=== PATIENT | male | born 1950 | race Caucasian/White ===

== ENCOUNTER 2018-06-02 12:32 | Emergency (ER) | payer OTHER, MEDICARE ==
[~2018-06-02] VITALS: Ht 177.8 cm; Wt 84.1 kg
[2018-06-02 13:36] LABS: CLARITY,URINE CLOUDY (Clear); COLOR,URINE YELLOW (Yellow); GLUCOSE, URINE NEGATIVE (Neg); KETONES,URINE NEGATIVE (Neg); LEUKOCYTE ESTERASE ,URINE NEGATIVE (Neg); NITRITES, URINE NEGATIVE (Neg); OCCULT BLOOD,URINE LARGE (Neg); PH,URINE 7.5 (4.8-8.0); PROTEIN,URINE TRACE mg/dl (Neg); UROBILINOGEN,URINE 0.2 E.U/dL (0.2-1.0)
[2018-06-02 13:37] LABS: UA COLLECTION TYPE CLN CATCH MIDSTREAM
[2018-06-02 13:41] LABS: BACTERIA,URINE NONE SEEN /HPF (Neg); MUCUS STRANDS NONE SEEN /LPF (Neg); RBC,URINE TNTC /HPF (0-2); SQUAMOUS EPITHELIAL CELL,UR NONE SEEN /LPF (FEW); WBC,URINE 0-4 /HPF (0-4)
[2018-06-02 14:25] VITALS: BP 125/68
== END 2018-06-02 14:26 | disposition home or self-care (01) ==
LOC: ER 12:34
DX: R33.9 Retention of urine, unspecified (principal); F17.200 Nicotine dependence, unspecified, uncomplicated
CPT/HCPCS: 51702; 81001; 99284; 99285

== ENCOUNTER 2018-06-12 23:41 | Emergency (ER) | payer OTHER ==
[~2018-06-12] VITALS: Ht 177.8 cm; Wt 84.1 kg
[2018-06-13 00:59] VITALS: BP 162/94
[2018-06-13 01:30] LABS: CLARITY,URINE SLIGHTLY CLOUDY (Clear); GLUCOSE, URINE NEGATIVE (Neg); KETONES,URINE NEGATIVE (Neg); LEUKOCYTE ESTERASE ,URINE NEGATIVE (Neg); NITRITES, URINE NEGATIVE (Neg); OCCULT BLOOD,URINE LARGE (Neg); PH,URINE 6.5 (4.8-8.0); PROTEIN,URINE 30 mg/dl (Neg); UROBILINOGEN,URINE 0.2 E.U/dL (0.2-1.0)
[2018-06-13 01:34] LABS: COLOR,URINE Pink (Yellow); UA COLLECTION TYPE FOLEY CATH
[2018-06-13 01:38] LABS: BACTERIA,URINE NONE SEEN /HPF (Neg); RBC,URINE TNTC /HPF (0-2); SQUAMOUS EPITHELIAL CELL,UR NONE SEEN /LPF (FEW)
[2018-06-13 01:39] LABS: WBC,URINE 0-4 /HPF (0-4)
== END 2018-06-13 01:15 | disposition home or self-care (01) ==
LOC: ER 23:42
DX: R33.9 Retention of urine, unspecified (principal)
CPT/HCPCS: 51702; 81001; 99284

== ENCOUNTER 2018-07-08 08:58 | Emergency (ER) | payer OTHER ==
[~2018-07-08] VITALS: Ht 177.8 cm; Wt 82.0 kg
[2018-07-08 09:02] VITALS: BP 164/93
[2018-07-08 11:14] LABS: CLARITY,URINE SLIGHTLY CLOUDY (Clear); COLOR,URINE YELLOW (Yellow); GLUCOSE, URINE NEGATIVE (Neg); KETONES,URINE NEGATIVE (Neg); LEUKOCYTE ESTERASE ,URINE MODERATE (Neg); NITRITES, URINE POSITIVE (Neg); OCCULT BLOOD,URINE LARGE (Neg); PH,URINE 6.5 (4.8-8.0); PROTEIN,URINE TRACE mg/dl (Neg); UROBILINOGEN,URINE 0.2 E.U/dL (0.2-1.0)
[2018-07-08 11:25] LABS: UA COLLECTION TYPE FOLEY CATH
[2018-07-08 11:27] LABS: BACTERIA,URINE 2+ /HPF (Neg); MUCUS STRANDS NONE SEEN /LPF (Neg); SQUAMOUS EPITHELIAL CELL,UR FEW /LPF (FEW); WBC,URINE TNTC /HPF (0-4)
[2018-07-08] MEDS ORDERED: CIPR-259 PO (11:37)
[2018-07-08] MEDS ORDERED: CEPH500C5 PO (11:47)
== END 2018-07-08 11:55 | disposition home or self-care (01) ==
LOC: ER 08:59
DX: T83.038A Leakage of other urinary catheter, initial encounter (principal); F17.200 Nicotine dependence, unspecified, uncomplicated; Z79.2 Long term (current) use of antibiotics; Y92.89 Other specified places as the place of occurrence of the external cause
CPT/HCPCS: 51702; 81001; 87077; 87088; 87186; 99284

== ENCOUNTER 2018-10-31 07:53 | Day surgery (SDC) | payer OTHER, MEDICARE ==
[~2018-10-31] VITALS: Ht 177.8 cm; Wt 84.0 kg
[2018-10-31] VITALS (18 sets, daily range): BP systolic 120–159; BP diastolic 70–105
[~2018-10-31 07:53] MED LIST: NO HOME MEDS; ceFAZolin 2gm in dextrose, iso 100 ML IV ONE; famotidine 20mg tablet PO ONE; ringers solution, lacted 1,000 ML IV SCH
[2018-10-31 08:45] LABS: BASOPHILS # (AUTO) 0.1 X10'3 (0-0.2); BASOPHILS % (AUTO) 1.2 % (0-1); EOSINOPHILS # (AUTO) 0.2 X10'3 (0-0.9); HEMATOCRIT 43.1 % (42.0-52.0); HEMOGLOBIN 14.6 g/dl (14.0-17.9); LYMPHOCYTES # (AUTO) 1.6 X10'3 (1.1-4.8); LYMPHOCYTES % (AUTO) 27.2 % (21-51); MEAN CORPUSCULAR HEMOGLOBIN 29.2 PG (27.0-31.0); MEAN CORPUSCULAR HGB CONC 33.9 g/dL (33.0-36.5); MEAN CORPUSCULAR VOLUME 86.1 FL (78-98); MEAN PLATELET VOLUME 9.8 FL (7.4-10.4); MONOCYTES # (AUTO) 0.4 X10'3 (0-0.9); MONOCYTES % (AUTO) 7.4 % (2-12); NEUTROPHILS # (AUTO) 3.5 X10'3 (1.8-7.7); NEUTROPHILS % (AUTO) 61.2 % (42-75); PLATELET COUNT 206 X10'3 (140-440); RED BLOOD COUNT 5.01 X10'6 (4.70-6.10); RED CELL DISTRIBUTION WIDTH 15.3 % (11.5-14.5); WHITE BLOOD COUNT 5.8 X10'3 (4.5-11.0)
[2018-10-31 08:52] LABS: ALANINE AMINOTRANSFERASE 19 U/L (12-78); ALBUMIN 3.4 G/DL (3.4-5.0); ALBUMIN/GLOBULIN RATIO 1.1 (1.1-1.5); ALKALINE PHOSPHATASE 77 IU/L (46-116); ANION GAP 5 (8-16); ASPARTATE AMINO TRANSFERASE 12 U/L (10-37); BILIRUBIN,TOTAL 0.6 MG/DL (0.1-1.0); BLOOD UREA NITROGEN 16 MG/DL (7-18); BUN/CREATININE RATIO 13.9 (5.4-32.0); CALCIUM 8.7 MG/DL (8.5-10.1); CHLORIDE 100 MMOL/L (99-107); CREATININE 1.15 MG/DL (0.60-1.10); GLUCOSE 98 MG/DL (70-104); POTASSIUM 3.8 MMOL/L (3.5-5.1); SODIUM 134 MMOL/L (135-145); TOTAL CARBON DIOXIDE 29.2 MMOL/L (24-32); TOTAL PROTEIN 6.6 G/DL (6.4-8.2); eGFR 63 ML/MIN
[2018-10-31] MEDS ORDERED: ringers solution, lacted 1,000 ML IV SCH (09:04)
[2018-10-31] MEDS ORDERED: hydrALAZINE 20mg/ml inj. IV PRN (09:05)
[2018-10-31] MEDS ORDERED: fentaNYL/PF 50MCG/1 ML 2ML syringe IV PRN ×2 (09:05)
[2018-10-31] MEDS ORDERED: ondansetron/PF 4mg/2ml inj IV PRN (09:05)
[2018-10-31] MEDS ORDERED: morphine 4 MG/ML inj SYRINge IV PRN ×2 (09:05)
[2018-10-31] MEDS ORDERED: labetalol 20mg/4ml (5mg/ml) syringe IV PRN (09:05)
[2018-10-31] MEDS ORDERED: midazolam 2 mg/2 ml injection ONE (10:44)
[2018-10-31] MEDS ORDERED: fentaNYL/PF 50MCG/1 ML 2ML syringe ONE (10:44)
[2018-10-31] MEDS ORDERED: LIDOcaine 2% (20mg/ml) 5ml vial ONE (10:45)
[2018-10-31] MEDS ORDERED: ondansetron/PF 4mg/2ml inj ONE (10:45)
[2018-10-31] MEDS ORDERED: propofol inj 20 ML IV ONE (10:45)
[2018-10-31] MEDS ORDERED: BUPIVAcaine/PF 2.5mg/ml (0.25%) 10ml vial ONE (10:46)
[2018-10-31] MEDS ORDERED: ceFAZolin 1000mg inj ONE (10:46)
[2018-10-31] MEDS ORDERED: glycopyrrolate 0.2mg/ml inj ONE (11:03)
[2018-10-31] MEDS ORDERED: dexamethasone sod phosphate 10mg/ml inj ONE (11:03)
[2018-10-31] MEDS ORDERED: neostigmine methylsulfate 1 MG/ML 10ml vial ONE (11:03)
[2018-10-31] MEDS ORDERED: sevoflurane 250ml liquid IH ONE (11:03)
[2018-10-31] MEDS ORDERED: labetalol 20mg/4ml (5mg/ml) syringe IV ONE (11:56)
--- NOTE | 2018-10-31 12:21 | NUR ---
Received from OR via [facility], accompanied by Anesthesiologist DR SMILEY and report given by Anesthesiologist. PT VERY DROWSY, NO S/S OF DISTRESS/DISCOMFORT, ABDOMEN W/2 LAP SITES W/BANDAIDS CDI. Addendum: 10/31/18 at 1232 by Bree Echeverria RN Amended: Links added.
[2018-10-31] MEDS ORDERED: HYDROcodone/acetaminophen 10/325mg tab PO ONE (15:15)
--- NOTE | 2018-10-31 15:31 | NUR ---
PT D/CD TO HOME W/FRIEND, PT VERBALIZES UNDERSTANDING OF D/C INSTRUCTIONS AND TO CALL IF UNABLE TO VOID NORMALLY AT HOME. Addendum: 10/31/18 at 1545 by Bree Echeverria RN Amended: Links added.
== END 2018-10-31 15:31 | disposition home or self-care (01) ==
LOC: PAS 07:53
PROVIDERS: ATTEND Surgery
DX: K40.90 Unilateral inguinal hernia, without obstruction or gangrene, not specified as recurrent (principal)
CPT/HCPCS: 36415; 49650; 80053; 82948; 85025; 93005; A6258; C1781; J0690; J1100; J2001; J2250; J2405; J2704; J2710; J3010; J3490; A4315; J7120